=== PATIENT | male | born 1950 | race Caucasian/White ===

== ENCOUNTER 2017-12-02 11:40 | Emergency (ER) | payer OTHER, MEDICARE ==
[2017-12-02] MEDS ORDERED: ADENOSINE 6 MG/2 ML VIAL ONE ×2 (11:45→11:48)
[2017-12-02] MEDS ORDERED: ADENOSINE 6 MG/2 ML VIAL IVP ONE ×2 (11:51→11:52)
[2017-12-02] MEDS ORDERED: NS 1,000 ML IV SCH (12:15)
--- NOTE | 2017-12-02 12:21 | EDPHY ---
H & P Time Seen by Provider: 12/02/17 11:47 HPI/ROS: HPI Palpitations. SVT. 67-year-old male from the office of Dr. Dash Lazcano, surveyor rod helper, this patient has a history of SVT. He has had SVT intermittently multiple times. He reports that this usually resolves with vomiting and Valsalva type maneuvers. He reports he tried these maneuvers today but could not break himself out of the SVT. He came from Dr. Lazcano's office. Dr. Lazcano cannot push adenosine in the office and sent the patient down to the emergency department for treatment. The patient denies any associated shortness of breath or chest pain. He has no other complaint other than palpitations. ROS: Constitutional: No fever, no chills. No weakness. Respiratory: No cough. No shortness of breath. Cardiac: No chest pain, as above. Gastrointestinal: No abdominal pain, no vomiting, no diarrhea. Musculoskeletal: No back pain. No neck pain. No myalgias or arthralgias. Neurological: No headache. No focal weakness or altered sensation. Past medical history: Insulin-dependent diabetes. SV T. As above. Social history: Nonsmoker. Denies drugs and alcohol. Here by himself. Physical Exam: General Appearance: Alert, no distress. This patient is responding to questions appropriately and in full sentences. This patient appears well- hydrated and well-nourished. Eyes: Pupils equal and round no pallor or injection. No lid edema, erythema or injection. Respiratory: There are no retractions, lungs are clear to auscultation with good air movement bilaterally. Cardiovascular: Regular tachycardia. No murmur. Gastrointestinal: Abdomen is soft and nontender, no masses, bowel sounds normal. No focal tenderness at McBurney's point. No Quintana sign. Neurological: Motor sensory function is grossly intact. Cranial nerves are normal. Gait is normal. Skin: Warm and dry, no rashes. Musculoskeletal: Neck is supple and nontender. Extremities are symmetrical. All joints range without pain or impingement. Psychiatric: No agitation. No depression. Database: EKG: EKG time is 11:55 a.m.; status post adenosine IV, shows sinus tachycardia ventricular rate average of 115. Atrial premature complexes noted. Right bundle branch morphology noted. Probable left ventricular hypertrophy. Interpreted by me. This EKG was also reviewed by his surveyor rod helper, Dr. Dash Lazcano, who came down to the emergency department to evaluate him. Imaging: Procedures: Emergency department course: Triage vital signs reviewed. Tachycardic. Vital signs otherwise normal. Patient afebrile. IV placed. The patient was placed on a residential monitor. Rhythm strip obtained. Reviewed by myself and Dr. Lazcano. This showed an SVT with ventricular rate average of 200-205. He was started on IV normal saline with 1 L to be given as a bolus. He was initially given 6 mg of IV adenosine rapid push with no effect. He was then given a 2nd dose at 12 mg which converted him to a sinus rhythm. He tolerated this medication well. EKG status post adenosine as noted above. Dr. Dash Lazcano evaluated the patient in the emergency department. I reviewed the patient's EKG with Dr. Lazcano. Dr. Lazcano feels the patient can be discharged from the emergency department assuming blood work including electrolytes and CBC is unremarkable. 12:55 p.m., the patient was re-evaluated, resting comfortably at this time. He is requesting discharge. From Dr. Lazcano's standpoint he feels comfortable with the patient being discharged. bus driver/monitor shows a narrow complex sinus rhythm with ventricular rate of 90. The patient denies any shortness of breath or chest pain. He has no complaints. Results of his blood work were discussed with him. I explained to him that he was likely dehydrated encouraged him to drink more fluids. He will follow up with Dr. Lazcano tomorrow for re-evaluation. Return to emergency department precautions were thoroughly discussed with him. All of his questions were answered. He was discharged from the emergency department in good condition. Differential Diagnosis: The differential diagnosis on this patient includes but is not limited to SVT, history of SVT. Pulmonary embolism, atrial fibrillation with rapid ventricular response, ventricular tachycardia, acute coronary syndrome unlikely. This represents a partial list of diagnoses considered. These considerations are based on history, physical exam, past history, reassessment and diagnostic testing. Smoking Status: Never smoked Constitutional: Initial Vital Signs Temperature (C) 36.5 C 12/02/17 11:43 Heart Rate 158 H 12/02/17 11:43 Respiratory Rate 16 12/02/17 11:43 Blood Pressure 115/94 H 12/02/17 11:43 O2 Sat (%) 92 12/02/17 11:43 O2 Delivery Mode Room Air Allergies/Adverse Reactions: No Known Allergies Allergy (Unverified 06/03/09 14:06) Home Medications: Medication Instructions Recorded Insulin Regular, Human 06/03/09 Medical Decision Making - Data Points Laboratory Results: Laboratory Results 12/02/17 11:58 12/02/17 11:58 Medications Given: Discontinued Medications Adenosine (Adenosine) 12 mg IVP EDNOW ONE Stop: 12/02/17 11:53 Last Admin: 12/02/17 11:55 Dose: 12 mg Adenosine (Adenosine) 6 mg IVP EDNOW ONE Stop: 12/02/17 11:52 Last Admin: 12/02/17 11:54 Dose: 6 mg Sodium Chloride (Ns) 1,000 mls @ 1,000 mls/hr IV CONT ROGER Stop: 05/31/18 12:14 Last Admin: 12/02/17 11:56 Dose: 1,000 mls Point of Care Test Results: Chemistry 12/02/17 12:00 POC Troponin I 0.00 ng/mL ng/mL (0.00-0.08) Departure - Departure Disposition: Home, Routine, Self-Care Clinical Impression: SVT (supraventricular tachycardia) Condition: Good Instructions: Supraventricular Tachycardia (ED) Additional Instructions: Read and follow provided instructions. Follow-up with Dr. Lazcano at least by phone tomorrow as discussed. Avoid coffee, caffeinated beverages or other stimulants. Keep yourself well hydrated as discussed. Return to the emergency department for return of palpitations, shortness of breath, chest pain or other serious concerns. Referrals: MITRA IBARRA [Primary Care Provider] - As per Instructions
[2017-12-02 12:36] LABS: PLATELET COUNT 282 10^3/uL (150-400)
[2017-12-02 13:18] VITALS: BP 161/78
--- NOTE | 2017-12-02 15:28 | CPEKG ---
Test Reason : OPEN Blood Pressure : / mmHG Vent. Rate : 202 BPM Atrial Rate : 203 BPM P-R Int : 000 ms QRS Dur : 129 ms QT Int : 291 ms P-R-T Axes : 000 -75 093 degrees QTc Int : 534 ms Wide-QRS tachycardia RBBB and LAFB Confirmed by Raymond Talamantes ([id number]) on 12/02/2017 3:28:20 PM Referred By: Confirmed By:aRymond Talamantes
--- NOTE | 2017-12-03 21:07 | CPEKG ---
Test Reason : OPEN Blood Pressure : / mmHG Vent. Rate : 115 BPM Atrial Rate : 115 BPM P-R Int : 159 ms QRS Dur : 137 ms QT Int : 359 ms P-R-T Axes : 038 -69 093 degrees QTc Int : 497 ms Sinus tachycardia Atrial premature complexes Probable left atrial enlargement Right bundle branch block LVH with IVCD and secondary repol abnrm Inferior infarct, acute Probable posterior infarct, acute Lateral leads are also involved Confirmed by Kurt Garcia ([id number]) on 12/03/2017 9:07:12 PM Referred By: Confirmed By:Kurt Garcia
== END 2017-12-02 13:17 | disposition home or self-care (01) ==
DX: I47.1 Supraventricular tachycardia (principal); E10.9 Type 1 diabetes mellitus without complications
CPT/HCPCS: 93005; 96361; 96374; 99284; J0153; 84484-PO

== ENCOUNTER → 2017-12-02 | Outpatient (CLI) | payer OTHER, MEDICARE | LOC: BHFA 11:00 | PROVIDERS: ATTEND Nurse Practitioner Adult Health | DX: I47.1 Supraventricular tachycardia (principal) ==

== ENCOUNTER 2018-01-11 10:58 | Observation (INO) | payer OTHER, MEDICARE ==
[2018-01-11] MEDS ORDERED: NS 1,000 ML IV ONE (11:04)
[2018-01-11 11:41] LABS: PLATELET COUNT 215 10^3/uL (150-400)
[2018-01-11 11:49] LABS: INR 1.07 (0.83-1.16); PROTIME(PATIENT) 14.1 SEC (12.0-15.0)
--- NOTE | 2018-01-11 12:35 | PDGENHP ---
History & Physical Chief Complaint: symptomatic svt Relevant Physical Exam: s1s2 rrr cta ao3 Cardiorespiratory Assessment: for eps and ablation
[2018-01-11] MEDS ORDERED: LIDOCAINE 1% 300 MG/30 ML SDV ONE (13:22)
[2018-01-11] MEDS ORDERED: HEPARIN 10,000 UNIT/10 ML MDV (1,000 UNIT/ML) ONE (13:22)
[2018-01-11] MEDS ORDERED: BUPIVACAINE 0.75% 10 ML SDV ONE (13:23)
[2018-01-11] MEDS ORDERED: ISOPROTERENOL HCL/D5W 0.2 MG/50 ML BAG IV ONE (13:23)
--- NOTE | 2018-01-11 13:36 | PDANEPAE ---
ANE History of Present Illness ablation and EP study for SVT ANE Past Medical History - Pulmonary History Hx Oxygen in Use at Home: No Hx Sleep Apnea: No - Endocrine History Hx Diabetes: Yes Endocrine History Comment: no insulin today ANE Review of Systems Review of Systems: - Exercise capacity Exercise capacity: >=4 METS ANE Patient History - Allergies Allergies/Adverse Reactions: No Known Allergies Allergy (Verified 01/04/18 12:00) - Home Medications Home medications: home medication list seen and reviewed Home Medications: Insulin NPH Human [HumuLIN N] 25 unit SC BID 01/04/18 [Last Taken Unknown] Insulin Regular Human [Humulin R 100 units/ml (*)] 25 - 30 units SC BID [Last Taken Unknown] - NPO status NPO Status: no food or drink >8 hours - Anes Hx Anes Hx: no prior problems - Smoking Hx Smoking Status: Never smoked - Alcohol Use Alcohol Use: Rarely - Family Anes Hx Family Anes Hx: none ANE Labs/Vital Signs - Labs Result Diagrams: 01/11/18 11:20 01/11/18 11:20 ANE Physical Exam - Airway Mallampati Score: Class 2 Mouth exam: poor dentition - Pulmonary Pulmonary: no respiratory distress - Cardiovascular Cardiovascular: regular rate and rhythym - ASA Status ASA Status: II ANE Anesthesia Plan Anesthesia Plan: general endotracheal anesthesia (careful with ETT as patient is a elizabeth)
[2018-01-11] MEDS ORDERED: fentaNYL 100 MCG/2 ML INJ ONE (13:50)
[2018-01-11] MEDS ORDERED: PROPOFOL/EMULSION 500 MG/50 ML BOTTLE IV ONE ×2 (13:51→14:48)
[2018-01-11] MEDS ORDERED: ONDANSETRON 4 MG/2 ML VIAL ONE (13:51)
[2018-01-11] MEDS ORDERED: ROCURONIUM 50 MG/5 ML VIAL ONE ×2 (13:51→14:59)
[2018-01-11] MEDS ORDERED: DEXAMETHASONE 4 MG/ML VIAL ONE (13:51)
[2018-01-11] MEDS ORDERED: ePHEDrine SULFATE 25 MG/5 ML SYR ONE ×2 (14:14→15:25)
[2018-01-11] MEDS ORDERED: ONDANSETRON 4 MG/2 ML VIAL IVP PRN (15:48)
[2018-01-11] MEDS ORDERED: DEXAMETHASONE 4 MG/ML VIAL IVP PRN (15:48)
[2018-01-11] MEDS ORDERED: PROMETHAZINE HCL 25 MG/ML INJ IVP PRN (15:48)
[2018-01-11] MEDS ORDERED: NALOXONE HCL 0.4 MG/ML INJ IVP PRN (15:48)
[2018-01-11] MEDS ORDERED: ALBUTEROL 3 ML DEYVIAL IH PRN (15:48)
[2018-01-11] MEDS ORDERED: LABETALOL HCL 5 MG/ML 20 ML MDV IVP PRN (15:48)
[2018-01-11] MEDS ORDERED: LR 500 ML IV PRN (15:48)
[2018-01-11] MEDS ORDERED: PHENYLEPHRINE HCL 100 MCG/ML SYR IVP PRN (15:48)
[2018-01-11] MEDS ORDERED: HYDROCODONE/APAP 5/325 TAB PO PRN (15:48)
[2018-01-11] MEDS ORDERED: fentaNYL 100 MCG/2 ML INJ IVP PRN (15:48)
[2018-01-11] MEDS ORDERED: SUGAMMADEX SODIUM 200 MG/2 ML VIAL IVP ONE (15:50)
--- NOTE | 2018-01-11 15:58 | EPPROC ---
Electrophysiology Procedure Note: ELECTROPHYSIOLOGIC STUDY AND CATHETER MEDIATED ABLATION OF SLOW/FAST AV LAURIE REENTRY TACHYCARDIA PROCEDURES PERFORMED: 77368-53 EP evaluation with RA/RV/LA pace/record, with arrhythmia induction 92097-93 EP evaluation with RA/RV pace record, insert/reposition catheter, with arrhythmia induction 48673 Intracardiac catheter ablation, SVT arrhythmogenic focus 50607 3D mapping Fluoroscopy INDICATION: PROCEDURE: Catheters & Anesthesia: The patient arrived in the Electrophysiology Laboratory in the fasting state. The right clavicular region, right groin, and left groin area were prepped and draped in the usual sterile manner. Anesthesiologist Dr. Jeannine Mercedes administered general anesthesia. Appropriate non-invasive blood pressure, pulse oximetry and end-tidal CO2 monitoring was established. All catheters were placed percutaneously using the modified Seldinger technique , and advanced into position under fluoroscopic guidance. One #6 [place] hexapolar non-deflectable electrode catheter was inserted into the right atrial appendage via the left femoral vein (2mm spacing; except the proximal ring which was 25cm from the tip used for unipolar recordings). One #7 [place] deflectable octapolar electrode catheter was advanced to the His-bundle position via the left femoral vein (2mm spacing). One #7 [place] deflectable quadrapolar catheter was advanced to the anteroseptal right ventricle via the right femoral vein. One #7 [place] deflectable catheter with 10 pairs of electrodes was placed via the right femoral vein into the coronary sinus. Heparin was given to keep ACT > 200 s. Programmed stimulation was performed from the right atrium, right ventricle and coronary sinus (left atrium). Parahisian pacing demonstrated constant H-A interval with changing V-A intervals and stimulus-A intervals during capture and loss of capture of proximal RBB proving retrograde conduction over AV node. AVNRT was induced easily at baseline. Ventricular extrastimuli delivered during tachycardia without altering antegrade His bundle activation did not advance next atrial potential, indicating that the tachycardia was not utilizing an accessory pathway for retrograde conduction. VA interval was 0 ms. Post entrainment of the tachycardia from the ventricle, there was VAHV response. A #8 [place] deflectable quadrapolar electrode catheter (2mm-5mm-2mm spacing) with 4 mm tip electrode and sensor for the 3D mapping Carto system was advanced to the right atrium. 3 D mapping of the inter-atrial septum and coronary sinus was performed and location of the AV node was marked. A Mobi sheath was used. RF applications were delivered to the region between the tricuspid annulus and the coronary sinus ostium, at the level of the upper edge of the coronary sinus ostium. Radiofrequency applications were also delivered along the roof of the proximal coronary sinus. Junctional rhythm occurred during all of the RF applications. Programmed stimulation was continued post ablation at baseline and during graded doses of isoproterenol upto 2 mcg/min and 4 mcg bolus. Sustained AVNRT was not inducible. There were single echo beats. The catheters were removed. The patient was transferred to the cardiovascular holding area in stable condition. Pursestring suture was used for hemostasis. There were no apparent complications. Results: A. Spontaneous Intervals: Pre ablation SCL 630 ms AH 60 ms HV 40 ms Post ablation SCL 610 ms AH 55 ms HV 40 ms B. Antegrade AV laurie function (decremental pacing) Pre ablation FPERP 330 ms SPERP 310 ms WBB CL 300 ms Post ablation FPERP 310 ms WBB CL 300 ms C. Retrograde AV laurie function (decremental pacing) Pre ablation FPERP 310 ms WBB CL 300 ms D. Arrhythmias: Sustained slow/fast AVNRT Cycle length 320 ms, AH interval 280 ms, LEAVITT interval 40 ms VA interval 0 ms CONCLUSIONS 1. AV laurie reentrant tachycardia using the slow AV laurie pathway for antegrade conduction and the fast AV laurie pathway for retrograde conduction. ( Slow/fast AVNRT). 2. Successful ablation of the slow AV laurie pathway with elimination of 1:1 antegrade conduction over the slow AV laurie pathway, all retrograde conduction over the slow AV laurie pathway and the inducibility of AVNRT. 3. No complications. Patient Problems: Problems Problem Status Onset Supraventricular tachycardia Acute
--- NOTE | 2018-01-11 16:14 | CPEKG ---
Test Reason : OPEN Blood Pressure : / mmHG Vent. Rate : 074 BPM Atrial Rate : 077 BPM P-R Int : 152 ms QRS Dur : 148 ms QT Int : 431 ms P-R-T Axes : 060 -68 064 degrees QTc Int : 479 ms Sinus rhythm Atrial premature complex Probable left atrial enlargement RBBB and LAFB Left ventricular hypertrophy Left atrial enlargement Confirmed by Mino Madsen ([id number]) on 01/11/2018 4:13:51 PM Referred By: Confirmed By:Mino Madsen
[2018-01-11] MEDS: INSULIN REGULAR HUMAN 100 UNIT/ML UNIT SC SCH (19:08)
[2018-01-11] MEDS: INSULIN NPH HUMAN 100 UNITS/ML SYR SC SCH (22:26)
[2018-01-12 04:28] LABS: PLATELET COUNT 198 10^3/uL (150-400)
[2018-01-12 07:28] VITALS: BP 148/86
[2018-01-12] MEDS: INSULIN REGULAR HUMAN 100 UNIT/ML UNIT SC SCH (08:25)
[2018-01-12] MEDS: INSULIN NPH HUMAN 100 UNITS/ML SYR SC SCH (08:34)
--- NOTE | 2018-01-12 10:11 | ASMTLACE ---
LACE Length of stay for Answers: Less than 1 day current admission Comorbidities - select Answers: Diabetes (uncontrolled or all that apply controlled) Opioid dependence / Chronic pain Other Notes: arrhythmia # of Emergency department Answers: 1-2 visits in the last 6 months Score: 7 Date Signed: 01/12/2018 10:11 AM Electronically Signed By:Shanda Pozo
--- NOTE | 2018-01-12 11:07 | GDS ---
DISCHARGE DIAGNOSES: 1. Atrioventricular haily reentrant tachycardia, status post ablation. 2. Hypertension, untreated. 3. Diabetes. HOSPITAL COURSE: For detailed H and P, please see prior dictation. Briefly, the patient is a 67-year-old male who experienced an episode of supraventricular tachycardia at a rate of 205 beats per minute. He was symptomatic, complaining of lightheadedness and nausea. He received 1 dose of adenosine in the emergency room and converted to normal sinus rhythm. He did not like medical therapy and, therefore, decided to proceed with an EP study and ablation. This was performed by Dr. Dash Lazcano on January 11, 2018. He was identified to have an AV haily reentrant tachycardia, which was ablated. The following morning, the patient denied any chest discomfort or shortness of breath. His troponin peaked at 0.275. EKG revealed normal sinus rhythm with a right bundle branch block and left anterior fascicular block. The preliminary results of an echocardiogram revealed normal sinus rhythm, without any evidence of pericardial effusion. PHYSICAL EXAMINATION: GENERAL: Patient appears in no acute distress. VITALS: Blood pressure 148/86, heart rate 66, oxygen saturation of 97% on room air. LUNGS: Clear to auscultation. No wheezes, rhonchi, or crackles auscultated. CARDIAC: Regular rate and rhythm, without any murmurs, rubs, or gallops appreciated. EXTREMITIES: Access for the EP study through the groins are clean , intact, without any evidence of infection or hematoma. Sutures were removed at the bedside. DISCHARGE MEDICATIONS: Aspirin 81 mg daily, lisinopril 5 mg daily, insulin as prescribed. PLAN: The patient is currently stable and ready for discharge home. He has been given groin precautions. He will arrange for a 1-month followup visit with Dr. Lazcano at the office. The patient is resistant to medical therapy. I discussed the importance of aspirin to reduce the risk of clot formation. He will also ambulate every 45 minutes for the next 7-[address] Lazcano and I also discussed the importance of treating his hypertension, especially in the setting of diabetes. Greater then 30 minutes was spent coordinating the patients care today. /[id number]/MODL MTDD
--- NOTE | 2018-01-12 12:58 | ECHO ---
[email or web address] [address] [address] Main: [phone] Fax: Transthoracic Echocardiogram Name: YAZMIN TERRY MR#: [id number] Study Date: 01/12/2018 Study Time: 07:37 AM Date of : 1950 Age: 67 year(s) Height: 177.8 cm (70 in.) Weight: 74.84 kg (165 lb.) BSA: 1.92 m2 Gender: Male Examination: Echo Indication: F/U post EP study Image Quality: Excellent Contrast: Requested by: Dash Lazcano BP: 148 mmHg/86 mmHg Heart Rate: Rhythm: Indication: F/U post EP study Procedure Staff Napkin Machine Operator: Laura Snell RDCS Reading Physician: Garfield Hawkins MD Requesting Provider: Conclusions: Normal global systolic LV function. The ejection fraction is estimated to be 60-65 %. Mild mitral valve regurgitation is present. Trivial to mild tricuspid valve regurgitation. Right Ventricular systolic pressure is measured at 22 mmHg. Measurements: Chambers Valvular Assessment AV/MV Valvular Assessment TV/PV Normal Normal Normal Name Value Range Name Value Range Name Value Range Ao Cher (MM): 3.9 cm (2.2 cm-3.7 AV Vmax: 1.13 m/s (1 m/s-1.7 TR Vmax: 2.06 mm/s ( - ) cm) m/s) TR PGmax: 17 mmHg ( - ) IVSd (2D): 0.9 cm (0.6 cm-1.1 AV meanP mmHg ( - ) syst. PAP: 22 mmHg ( - ) cm) MV E Vmax: 0.74 m/s ( - ) LVDd (2D): 5.7 cm (4.2 cm-5.9 MV A Vmax: 0.89 m/s ( - ) cm) MV E/A: 0.83 ( - ) LVDs (2D): 3.3 cm (2.1 cm-4 cm) LVPWd (2D): 0.9 cm (0.6 cm-1 cm) LVEF (MOD4): 68 % (>=55 %) EF Range: 60-65 % Continued Measurements: Chambers Valvular Assessment AV/MV Valvular Assessment TV/PV Name Value Name Value Name Value LADs: 3.4 cm MV E' Septal: 0.07 m/s CVP (est.): 5 mmHg LADs Lon.1 cm MV E/E' Septal: 11.30 LA Area: 15.4 cm2 MV E/E' Lateral: 10.70 Patient: YAZMIN TERRY Study Date: 01/12/2018 Page 1 of 2 07:37 AM Additional Vessels Name Value Ao Ascendin.3 cm Findings: Left Ventricle: Normal size left ventricle. Normal global systolic LV function. The ejection fraction is estimated to be 60-65 %. No regional wall motion abnormality. Normal diastolic LV function. Right Ventricle: Normal size right ventricle. Left Atrium: The left atrium is normal in size. LA volume is 18.2 ml/m2. Right Atrium: The right atrium is normal in size. Mitral Valve: The mitral valve is normal in appearance and function. Mild mitral valve regurgitation is present. Aortic Valve: The aortic valve is normal in appearance and function. Tricuspid Valve: The tricuspid valve is normal in appearance and function. Trivial to mild tricuspid valve regurgitation. Right Ventricular systolic pressure is measured at 22 mmHg. Pulmonic Valve: The pulmonic valve is normal in appearance and function. Aorta: The aorta is normal. Pericardium: No pericardial effusion. Exam Comments: Previous echo 11/27/17.. (No Signature Object) Patient: YAZMIN TERRY Study Date: 01/12/2018 Page 2 of 2 07:37 AM D:_[id number]
--- NOTE | 2018-01-12 13:46 | ASDISCHSUM ---
Discharge Information Plan Status:Home with No Needs Medically Cleared to Leave:01/12/2018 Discharge Date:01/12/2018 11:21 AM CM D/C Disposition:Home, Routine, Self-Care ADT D/C Disposition:Home, Routine, Self-Care Projected Discharge Date:01/12/2018 11:21 AM Transportation at D/C:Family Discharge Delay Reason: Follow-Up Date:01/12/2018 11:21 AM Discharge Slot: Final Diagnosis:ablation for arrhythmias Placement Information Patient Contact Information Contact Name:SELINA Relationship: Address:[address] City:[facility] Alternate Phone: [facility]/Zip Code:[place] [address] Email: Financial Information Financial Class:Medicare Primary Plan Desc:MEDICARE OUTPATIENT Primary Plan Number:[id number] Secondary Plan Desc:LYNDON/MARIAM SUPPLEMENT Secondary Plan Number:[id number] Assessment Information LACE LACE Length of stay for Answers: Less than 1 day current admission Comorbidities - select Answers: Diabetes (uncontrolled or all that apply controlled) Opioid dependence / Chronic pain Other Notes: arrhythmia # of Emergency department Answers: 1-2 visits in the last 6 months Score: 7 Date Signed: 01/12/2018 10:11 AM Electronically Signed By:Shanda Pozo Case Management Discharge Plan Note Case Management Discharge Discharge Order Complete? Answers: Yes Patient to Obtain Answers: via Family Medications Transportation Arranged Answers: Family/Friends Family Notified Answers: Yes Notes: by pt Discharge Comments Notes: Pt up walking in the halls independently when CM checked in with him. Pt admitted for scheduled EPS and ablation d/t symptomatic SVTs. Per RN pt is independent and will discharge without CM needs. No therapies ordered. Pt lives in [place] with his . No CM needs noted at this time. CM available should needs change. Date Signed: 01/12/2018 01:46 PM Electronically Signed By:Shanda Pozo Intervention Information Intervention Type:*FREEDMAN-Signed Date of Service:01/12/2018 09:48 AM Patient Type:Observation Staff Member:Patty Zamora Hours: Discipline: Severity: Comment:
--- NOTE | 2018-01-12 16:39 | CPEKG ---
Test Reason : OPEN Blood Pressure : / mmHG Vent. Rate : 092 BPM Atrial Rate : 093 BPM P-R Int : 155 ms QRS Dur : 145 ms QT Int : 413 ms P-R-T Axes : 071 -66 074 degrees QTc Int : 511 ms Sinus rhythm Probable left atrial enlargement RBBB and LAFB Left ventricular hypertrophy Unchanged Confirmed by Mino Madsen ([id number]) on 01/12/2018 4:39:17 PM Referred By: Confirmed By:Mino Madsen
--- NOTE | 2018-01-12 16:52 | CPEKG ---
Test Reason : OPEN Blood Pressure : / mmHG Vent. Rate : 086 BPM Atrial Rate : 086 BPM P-R Int : 145 ms QRS Dur : 147 ms QT Int : 389 ms P-R-T Axes : 061 -66 100 degrees QTc Int : 466 ms Sinus rhythm Ventricular premature complex RBBB and LAFB Left ventricular hypertrophy Confirmed by Mino Madsen ([id number]) on 01/12/2018 4:52:03 PM Referred By: Confirmed By:Mino Madsen
== END 2018-01-12 11:21 | disposition home or self-care (01) ==
LOC: FCATH 10:58 → F2W 16:14
PROVIDERS: ADMIT Internal Medicine Cardiovascular Disease; ATTEND Internal Medicine Cardiovascular Disease
DX: I47.1 Supraventricular tachycardia (principal); I10 Essential (primary) hypertension; E11.9 Type 2 diabetes mellitus without complications
CPT/HCPCS: 93005; 93306; 93613; 93621; 93653; C1730; C1731; C1732; C1766; J1100; J1644; J1815; J2405; J2704; J3010

== ENCOUNTER → 2018-03-25 | Outpatient (CLI) | payer OTHER, MEDICARE | LOC: BHFA 16:00 | PROVIDERS: ATTEND Nurse Practitioner Adult Health | DX: I47.1 Supraventricular tachycardia (principal) ==